=== PATIENT | male | born 1970 | race Caucasian/White ===

== ENCOUNTER 2024-06-22 00:30 | Inpatient (IN) | payer MEDICARE, SELFPAY ==
[2024-06-22] MEDS ORDERED: levETIRAcetam 500 MG (5 mL) VIAL ONE ×3 (00:50→12:55)
[2024-06-22 01:37] LABS: #Basophils 0.04 10x3/uL (0.0-0.2); %Basophils 0.5 % (0.0-1.0); %Eosinophils 1.8 % (0.0-10.0); %Lymphocytes 36.1 % (21.0-51.0); %Monocytes 9.7 % (0.0-10.0); %Neutrophils 51.6 % (42.0-75.0); Hematocrit 38.4 % (42.0-52.0); Hemoglobin 13.4 g/dL (14.0-18.0); Mean Corpuscular HGB CONC 34.9 g/dL (32.0-36.0); Mean Corpuscular Hemoglobin 31.8 pg (27.0-31.0); Mean Platelet Volume 11.3 fL (7.4-10.4); Platelet Count 141 10x3/uL (130-400); RBC Distribution Width 11.5 % (11.5-14.5); Red Blood Cell (RBC) Count 4.22 mill/uL (4.70-6.10)
[2024-06-22 02:17] LABS: Troponin I Less than 0.010 ng/mL (< 0.028)
[2024-06-22 02:19] LABS: ALT (SGPT) 34 U/L (8-55); AST (SGOT) 29 U/L (5-34); Albumin 3.3 g/dL (3.5-5.0); Alkaline Phosphatase 77 U/L (40-110); Anion Gap 12 mmol/L (10-20); BUN (Urea Nitrogen) 13 mg/dL (8.4-25.7); Bilirubin, Total 0.3 mg/dL (0.2-1.2); CK (CPK) 151 U/L (30-200); Calc. Creatinine Clearance 0 mL/min (70-130); Calcium 8.8 mg/dL (7.8-10.44); Carbon Dioxide 24 mmol/L (22-29); Chloride 106 mmol/L (98-107); Estimated GFR 100; Globulin 3.4 g/dL (2.4-3.5); Glucose 119 mg/dL (70-105); Lipase 20 U/L (8-78); Magnesium 1.7 mg/dL (1.6-2.6); Protein, Total 6.7 g/dL (6.0-8.3); Sodium 138 mmol/L (136-145)
[2024-06-22] MEDS ORDERED: Calcium Carbonate 500 MG ChewTAB PO PRN (03:20)
[2024-06-22] MEDS ORDERED: Senokot S 8.6-50 MG TAB PO PRN (03:20)
[2024-06-22] MEDS ORDERED: Ondansetron PF 4 MG/2 ML Vial IVP PRN (03:20)
[2024-06-22 04:22] VITALS: BMI 29.9
[2024-06-22 05:42] LABS: Anion Gap 12 mmol/L (10-20); BUN (Urea Nitrogen) 14 mg/dL (8.4-25.7); CK (CPK) 169 U/L (30-200); Calc. Creatinine Clearance 99 mL/min (70-130); Carbon Dioxide 27 mmol/L (22-29); Chloride 104 mmol/L (98-107); Estimated GFR 93; Glucose 110 mg/dL (70-105); Magnesium 1.7 mg/dL (1.6-2.6); Potassium 3.9 mmol/L (3.5-5.1); Sodium 139 mmol/L (136-145)
[2024-06-22] MEDS ORDERED: Magnesium 2 GM/50 ML BAG (IN WATER) ONE (05:53)
[2024-06-22] MEDS: Magnesium 2 GM/50 ML(in water) 2 GM in Premix 1 BAG IVPB SCH (06:03)
[2024-06-22] MEDS ORDERED: Gabapentin 300 MG CAP ONE (08:32)
[2024-06-22] MEDS ORDERED: Famotidine/PF 20 mg/2ml Vial ONE (08:32)
[2024-06-22] MEDS: DULoxetine 30 MG CAP PO SCH (08:38)
[2024-06-22] MEDS: Gabapentin 300 MG CAP PO SCH (08:40)
[2024-06-22] MEDS: Famotidine/PF 20 mg/2ml Vial SLOW IVP SCH (08:40)
[2024-06-22] MEDS: levETIRAcetam 500 MG (5 mL) VIAL SLOW IVP SCH ×2 (08:43→22:54)
[2024-06-22] MEDS: Venlafaxine HCl XR 150 MG CAP PO SCH (08:43)
[2024-06-22] MEDS ORDERED: Lorazepam 2 MG/ML VIAL ONE ×2 (12:33→12:53)
[2024-06-22] MEDS: Lorazepam 2 MG/ML VIAL SLOW IVP PRN (12:42)
[2024-06-22] MEDS ORDERED: Sodium Chloride 0.9% 100 ML ONE (12:55)
[2024-06-22] MEDS: Ezetimibe 10 MG TAB PO SCH (13:06)
[2024-06-22] MEDS: Rosuvastatin 20 MG TAB PO SCH (13:06)
[2024-06-22] MEDS: lamoTRIgine 25 MG TAB PO SCH (22:55)
[2024-06-22] MEDS: Enoxaparin 40 MG (0.4 mL) SYRINGE SC SCH (22:55)
[2024-06-22] MEDS: hydrOXYzine 25 MG TAB PO SCH (22:55)
[2024-06-22] MEDS: Fenofibrate Nanocrystallized 145 MG TAB PO SCH (22:55)
[2024-06-22] MEDS: Acetaminophen 325 MG TAB PO PRN (22:57)
[2024-06-23 14:37] LABS: Bacteria/HPF None Seen HPF (None Seen); Bilirubin Negative (Negative); Blood, Urine Negative (Negative); Clarity Clear (Clear); Glucose, Urine (Dipstick) Normal (Negative); Ketone, Urine 10 mg/dL (Negative); Leukocyte Negative Leu/uL (Negative); Nitrite Negative (Negative); Protein, Urine (Dipstick) 10 mg/dL (Neg-Trace); RBC/HPF 0-3 HPF (0-3); Specific Gravity, Urine 1.027 (1.002-1.036); Squamous Epithelial None Seen HPF (0-3); Urobilinogen Normal mg/dL (Less than 2); WBC/HPF 0-3 HPF (0-3); pH, Urine 5.5 (5.0-9.0)
[2024-06-23] MEDS: FLU (Fluarix Triv) TS24-25(6MOS UP)/PF 45 MCG/0.5 ML Syringe IM ONE (16:13)
[2024-06-23] MEDS: cloNIDine 0.1 MG TAB PO SCH (21:08)
[2024-06-24] MEDS: Lorazepam 0.5 MG TAB PO SCH (22:28)
[2024-06-25 18:18] LABS: #Basophils 0.05 10x3/uL (0.0-0.2); %Basophils 0.5 % (0.0-1.0); %Eosinophils 1.1 % (0.0-10.0); %Lymphocytes 37.6 % (21.0-51.0); %Monocytes 9.9 % (0.0-10.0); %Neutrophils 50.6 % (42.0-75.0); Hematocrit 48.1 % (42.0-52.0); Hemoglobin 16.1 g/dL (14.0-18.0); Mean Corpuscular HGB CONC 33.5 g/dL (32.0-36.0); Mean Corpuscular Hemoglobin 31.5 pg (27.0-31.0); Mean Corpuscular Volume 94.1 fL (78.0-98.0); Mean Platelet Volume 11.6 fL (7.4-10.4); Platelet Count 174 10x3/uL (130-400); RBC Distribution Width 11.9 % (11.5-14.5); Red Blood Cell (RBC) Count 5.11 mill/uL (4.70-6.10)
[2024-06-25 18:23] LABS: ALT (SGPT) 57 U/L (8-55); AST (SGOT) 22 U/L (5-34); Alkaline Phosphatase 95 U/L (40-110); Anion Gap 15 mmol/L (10-20); BUN (Urea Nitrogen) 18 mg/dL (8.4-25.7); Bilirubin, Total 0.4 mg/dL (0.2-1.2); CK (CPK) 43 U/L (30-200); Calc. Creatinine Clearance 95 mL/min (70-130); Calcium 9.8 mg/dL (7.8-10.44); Carbon Dioxide 25 mmol/L (22-29); Chloride 106 mmol/L (98-107); Estimated GFR 78; Globulin 4.1 g/dL (2.4-3.5); Glucose 122 mg/dL (70-105); Potassium 4.1 mmol/L (3.5-5.1); Protein, Total 8.1 g/dL (6.0-8.3); Sodium 142 mmol/L (136-145)
[2024-06-26] MEDS ORDERED: Magnevist 469MG/ML 20 ML VIAL ONE (11:50)
[2024-06-29] MEDS: Famotidine 20 MG TAB PO SCH (21:35)
[2024-06-29] MEDS: Lorazepam 0.5 MG TAB PO SCH (23:54)
[2024-06-30 04:21] LABS: #Basophils 0.06 10x3/uL (0.0-0.2); %Basophils 0.7 % (0.0-1.0); %Eosinophils 1.5 % (0.0-10.0); %Lymphocytes 42.6 % (21.0-51.0); %Monocytes 9.5 % (0.0-10.0); %Neutrophils 45.3 % (42.0-75.0); Hematocrit 44.4 % (42.0-52.0); Hemoglobin 14.5 g/dL (14.0-18.0); Mean Corpuscular HGB CONC 32.7 g/dL (32.0-36.0); Mean Corpuscular Hemoglobin 31.3 pg (27.0-31.0); Mean Corpuscular Volume 95.9 fL (78.0-98.0); Mean Platelet Volume 11.8 fL (7.4-10.4); Platelet Count 133 10x3/uL (130-400); RBC Distribution Width 12.1 % (11.5-14.5); Red Blood Cell (RBC) Count 4.63 mill/uL (4.70-6.10)
[2024-06-30 04:37] LABS: Anion Gap 12 mmol/L (10-20); BUN (Urea Nitrogen) 24 mg/dL (8.4-25.7); Calc. Creatinine Clearance 95 mL/min (70-130); Calcium 8.9 mg/dL (7.8-10.44); Carbon Dioxide 27 mmol/L (22-29); Chloride 106 mmol/L (98-107); Estimated GFR 78; Glucose 130 mg/dL (70-105); Potassium 3.8 mmol/L (3.5-5.1); Sodium 141 mmol/L (136-145)
[2024-06-30] MEDS: Sodium Chloride 0.9% 1,000 ML IV SCH (08:44)
[2024-06-30] MEDS: Cyclobenzaprine 10 MG TAB PO SCH (10:11)
[2024-06-30 13:58] VITALS: BMI 33.0
[2024-06-30 17:35] VITALS: BP 148/84; TEMP 98.5
[2024-06-30] MEDS ORDERED: levETIRAcetam 500 MG TAB PO SCH (21:00)
== END 2024-06-30 18:40 | DRG 880 ==
LOC: ERS 00:30 → ERHOLD 03:25 → IMCU/EMU 03:35 → 2SE 06-23 20:28 → OBSVTOIN 06-24 12:17 → CCU 06-25 22:41 → 2SE 06-26 01:22
PROVIDERS: ADMIT Student in an Organized Health Care Education/Training Program; ATTEND Internal Medicine
PROC: XX20X89 Monitoring of Brain Electrical Activity, Computer-aided Detection and Notification, New Technology Group 9 (ICD-10-PCS; principal; 2024-06-22)
PROC: XX20X89 Monitoring of Brain Electrical Activity, Computer-aided Detection and Notification, New Technology Group 9 (ICD-10-PCS; 2024-06-26)
DX: F44.5 Conversion disorder with seizures or convulsions (principal); I69.354 Hemiplegia and hemiparesis following cerebral infarction affecting left non-dominant side; F41.8 Other specified anxiety disorders; F45.9 Somatoform disorder, unspecified; I10 Essential (primary) hypertension; E78.5 Hyperlipidemia, unspecified; K21.9 Gastro-esophageal reflux disease without esophagitis; G43.909 Migraine, unspecified, not intractable, without status migrainosus; Z79.899 Other long term (current) drug therapy; F17.290 Nicotine dependence, other tobacco product, uncomplicated
CPT/HCPCS: 36415; 36416; 70553; 76376; 80048; 80053; 81001; 82550; 83605; 83690; 83735; 83880; 84146; 84443; 84484; 85025; 95705; 96365; 96372; 96375; 96376; G0378; J1650; J1953; J2060; J3475; J3490; J7030; Q2009